=== PATIENT | female | born 1965 | race Caucasian/White ===

== ENCOUNTER 2023-03-28 07:07 | Day surgery (SDC) | payer BC ==
[2023-03-25 10:59] VITALS: BMI 32.3
[2023-03-28] MEDS ORDERED: Lidocaine 1% PF 5 ML VIAL ONE (10:21)
[2023-03-28] MEDS ORDERED: PROPOFOL 200 MG/20 ML VIAL ONE (10:21)
[2023-03-28] MEDS ORDERED: Glycopyrrolate 0.2 MG/ML 5 ML SYRINGE ONE (10:21)
[2023-03-28] MEDS ORDERED: ePHEDrine Sulfate 50 MG/10 ML VIAL ONE (10:21)
[2023-03-28] MEDS ORDERED: Loperamide HCl 2 MG CAP PO SCH (11:30)
== END 2023-03-28 12:10 | disposition home or self-care (01) ==
LOC: SDC 07:07
PROVIDERS: ATTEND Internal Medicine
PROC: 0D758ZZ Dilation of Esophagus, Via Natural or Artificial Opening Endoscopic (ICD-10-PCS; principal; 2023-03-28)
PROC: 0DB58ZX Excision of Esophagus, Via Natural or Artificial Opening Endoscopic, Diagnostic (ICD-10-PCS; principal; 2023-03-28)
DX: K29.50 Unspecified chronic gastritis without bleeding (principal); K21.00 Gastro-esophageal reflux disease with esophagitis, without bleeding; A04.71 Enterocolitis due to Clostridium difficile, recurrent; I10 Essential (primary) hypertension; D64.9 Anemia, unspecified; J45.909 Unspecified asthma, uncomplicated; F32.A Depression, unspecified; K64.9 Unspecified hemorrhoids; Z86.010 Personal history of colon polyps; Z91.018 Allergy to other foods; Z91.048 Other nonmedicinal substance allergy status
CPT/HCPCS: 88305; 88342; J2704